=== PATIENT | female | born 1990 | race Caucasian/White ===

== ENCOUNTER 2020-12-01 10:08 | Outpatient (CLI) | payer BC ==
[2020-12-01 11:21] VITALS: BP 127/74; PULSE 96; RESP 16; TEMP 98.1
--- NOTE | 2021-01-13 16:24 | P.MSEPDOC ---
Presenting Problems - Arrival Data Date of Arrival on Unit: 12/01/20 Time of Arrival on Unit: 10:08 Mode of Transport: Ambulatory - Complaint OB-Reason for Admission/Chief Complaint: Decreased Movement Medical History - Information : 1 Para: 0 Term: 0 : 0 Abortions: Spontaneous or Elective: 0 Number of Living Children: 0 - Gestational Age Gestational Age by GUILLERMINA (wks/days): 27 Weeks and 3 Days Review of Systems - Review of Systems Constitutional: No problems Breast: No problems ENT: No problems Cardiovascular: No problems Respiratory: No problems Gastrointestinal: No problems Genitourinary: No problems Musculoskeletal: No problems Neurological: No problems Skin: No problems Vital Signs - Temperature Temperature: 98.1 F Temperature Source: Temporal Artery Scan - Pulse Brachial Pulse Rate: 96 - Respirations Respiratory Rate: 16 Oxygen Delivery Method: Room Air O2 Sat by Pulse Oximetry: 98 - Blood Pressure Right Arm Blood Pressure: 127/74 Blood Pressure Mean: 91 Blood Pressure Source: Automatic Cuff Physician Notification - Physician Notified Physician Notified Date: 12/01/20 Physician Notified Time: 10:40 Physician: Jazlyn Murry New Order Received: Yes - Notification Comment Comment: pt here for decreased movement at 27 weeks. Movement is audible on monitor and pt is now feeling it as well. Maternal Triage Index - Maternal Triage Index Presenting for scheduled procedure w/no complaint: No - Stat/Priority 1 Stat Priority 1: No - Urgent/Priority 2 Urgent Priority 2: No - Prompt/Priority 3 Prompt Priority 3: No - Non-Urgent/Priority 4 Non-Urgent Priority 4: No - Scheduled/Requesting Priority 5 Scheduled/Requesting Priority 5: No Disposition - Disposition OB Disposition: Triage, Discharge to home, Written follow up instructions reviewed Discharge Date: 12/01/20 Discharge Time: 10:45 I agree with the RN Medical Screening Exam: Yes Physician's MSE Comment: Patient was not seen reexamined by myself Case reviewed; plan agreed upon as documented in EMR&OBIX.: Yes Diagnosis: DECREASED MOVEMENTS, SECOND TRIMESTER, FETUS 1
== END 2020-12-01 10:45 | disposition home or self-care (01) ==
LOC: FBPOP 10:08
PROVIDERS: ATTEND Obstetrics & Gynecology Obstetrics
DX: O36.8121 Decreased fetal movements, second trimester, fetus 1 (principal); Z3A.27 27 weeks gestation of pregnancy
CPT/HCPCS: 99213

== ENCOUNTER 2021-02-24 01:53 | Inpatient (IN) | payer BC ==
[2021-02-24] MEDS ORDERED: CARBOPROST TROMETHAMINE 250 MCG/ML 1 ML AMP IM PRN (02:21)
[2021-02-24] MEDS ORDERED: OXYTOCIN 10 UNIT/ML 1 ML VIAL IM PRN (02:21)
[2021-02-24] MEDS ORDERED: METHYLERGONOVINE 0.2 MG/ML 1 ML AMP IM PRN (02:21)
[2021-02-24] MEDS ORDERED: LIDOCAINE 0.5% (PF) 5 MG/ML (50 ML SDV) SQ PRN (02:21)
[2021-02-24] MEDS ORDERED: TERBUTALINE 1 MG/ML VIAL SQ PRN (02:21)
[2021-02-24] MEDS: LACTATED RINGERS 1,000 ML IV SCH ×2 (03:01→07:45)
[2021-02-24 03:36] LABS: Basophils % (A) 0 %; Eosinophils # (A) 0.1 k/uL (0-0.7); Eosinophils % (A) 1 %; HCT 39.2 % (34.0-46.0); HGB 13.6 gm/dL (11.4-16.0); Lymphocytes # (A) 1.9 k/uL (1.0-4.8); Lymphocytes % (A) 19 %; MCH 30.5 pg (25.0-35.0); MCHC 34.8 g/dL (31.0-37.0); MCV 87.8 fL (80.0-100.0); Mean Platelet Volume 8.9; Monocytes # (A) 0.6 k/uL (0-1.0); Monocytes % (A) 6 %; Neutrophils # (A) 7.3 k/uL (1.3-7.7); Neutrophils % (A) 72 %; Platelet Count 224 k/uL (150-450); RBC 4.46 m/uL (3.80-5.40); RDW 13.1 % (11.5-15.5); WBC 10.1 k/uL (3.8-10.6)
[2021-02-24] MEDS ORDERED: OXYTOCIN 30 UNITS/500 ML NS 30 UNIT in SALINE 1 500ML.BAG IV SCH ×2 (05:00→13:15)
[2021-02-24] MEDS ORDERED: BUTORPHANOL 1 MG/ML 1 ML VIAL IV PRN (05:01)
[2021-02-24] MEDS ORDERED: ROPIVACAINE 5MG/ML 20ML VIAL ONE (07:30)
[2021-02-24] MEDS ORDERED: SODIUM CHLORIDE 0.9% 100 ML BAG ONE (07:30)
[2021-02-24] MEDS ORDERED: fentaNYL (PF) 50 MCG/ML 5 ML AMP ONE (07:30)
[2021-02-24] MEDS ORDERED: ROPIVACAINE 100 MG, fentaNYL (PF). 200 MCG in SODIUM CHLORIDE 0.9% 76 ML EPIDURAL ONE (11:03)
[2021-02-24] MEDS ORDERED: HYDROCORTISONE 2.5% RECTAL CREAM 30 GM TUBE RECTAL PRN (13:08)
[2021-02-24] MEDS ORDERED: LANOLIN CREAM 5 GM TUBE TOPICAL PRN (13:08)
[2021-02-24] MEDS ORDERED: BENZOCAINE/MENTHOL SPRAY 1 GM/SPRAY AEROSOL TOPICAL PRN (13:08)
[2021-02-24] MEDS ORDERED: ZOLPIDEM 5 MG TAB PO PRN (13:08)
[2021-02-24] MEDS ORDERED: diphenhydrAMINE 25 MG CAP PO PRN (13:08)
[2021-02-24] MEDS ORDERED: diphenhydrAMINE 50 MG/ML 1 ML VIAL IVP PRN ×2 (13:08)
[2021-02-24] MEDS ORDERED: SIMETHICONE 80 MG CHEWABLE PO PRN (13:08)
[2021-02-24] MEDS ORDERED: HYDROcodone/APAP 5-325MG 1 EACH TAB PO PRN (13:08)
[2021-02-24] MEDS ORDERED: ACETAMINOPHEN TAB 325 MG TAB PO PRN (13:08)
[2021-02-24] MEDS ORDERED: diphenhydrAMINE 50 MG CAP PO PRN (13:08)
[2021-02-24] MEDS: IBUPROFEN 600 MG TAB PO PRN (15:56)
[2021-02-24] MEDS: SENNOSIDES-DOCUSATE SODIUM 1 EACH TAB PO SCH (19:45)
[2021-02-25] MEDS: IBUPROFEN 600 MG TAB PO PRN ×2 (01:29→07:48)
[2021-02-25] MEDS: SENNOSIDES-DOCUSATE SODIUM 1 EACH TAB PO SCH (07:48)
[2021-02-25 08:19] VITALS: BP 105/71; PULSE 82; RESP 16; TEMP 97.9
--- NOTE | 2021-02-25 08:57 | P.DS ---
Providers Date of admission: 02/24/21 02:17 Expected date of discharge: 02/25/21 Attending physician: Hope Santiago Primary care physician: Stated None - Discharge Diagnosis(es) (1) Term Current Visit: Yes Status: Acute (2) SROM (spontaneous rupture of membranes) Current Visit: Yes Status: Acute (3) Status post normal vaginal delivery Current Visit: Yes Status: Acute Hospital Course: this is a 30-year-old 1 now para 1 at 40 weeks presented to labor and delivery on 02/24 with complaints of spontaneous rupture of membranes around 1 AM. patient had been receiving routine care with myself which had been essentially uncomplicated. Patient was admitted to labor and delivery and Pitocin augmentation of labor was begun. Patient did become uncomfortable and requested epidural placement, anesthesia did place this epidural without difficulty. Patient progressed to complete began pushing and had a normal spontaneous vaginal delivery of a viable female infant at 1258, weight of 8 lbs. 4 oz., Apgars of 8 and 9 at one and 5 minutes respectively. No vaginal lacerations were appreciated after delivery. Patient's course has been uneventful. On this post day #1 she is ambulating and voiding without difficulty. She states her lochia is minimal. She is bottle feeding. She denies concerns and would like discharge home at 24 hours. Patient Condition at Discharge: Good Plan - Discharge Summary Discharge Rx Participant: Yes New Discharge Prescriptions: No Action Aspirin [[place] Aspirin EC] 81 mg DAILY Pnv,Calcium 72/Iron/Folic Acid [ Plus Tablet] 1 tablet PO DAILY Discharge Medication List Aspirin [[place] Aspirin EC] 81 mg DAILY 12/01/20 [History] Pnv,Calcium 72/Iron/Folic Acid [ Plus Tablet] 1 tablet PO DAILY 12/01/20 [History] Follow up Appointment(s)/Referral(s): Hope Santiago DO [Doctor of Osteopathic Medicine] - 1 Week Patient Instructions/Handouts: Vaginal Delivery (GEN), Vaginal Delivery (DC) Discharge Disposition: HOME SELF-CARE
--- NOTE | 2021-02-25 08:58 | P.HPOB ---
History of Present Illness H&P Date: 02/24/21 Chief Complaint: UP at 40-0/7 weeks, spontaneous rupture of membranes this is a 30-year-old 1 para 0 at 40-0/7 weeks that presents to labor and delivery with complaints of spontaneous rupture of membranes. Patient noted leakage of fluid around 1 AM. Patient states the fluid was clear in nature. Patient denied contractions on initial admission to the hospital. Patient has been receiving routine care which might with myself which has been essentially uncomplicated. Patient notes good movement, denies vaginal bleeding. Review of Systems Constitutional: Denies chills, Denies fatigue, Denies fever Ears, nose, mouth and throat: Denies headache Cardiovascular: Denies leg edema Respiratory: Denies dyspnea Gastrointestinal: Denies nausea, Denies vomiting Genitourinary: Reports Past Medical History Past Medical History: No Reported History History of Any Multi-Drug Resistant Organisms: None Reported Past Surgical History: Tonsillectomy Past Anesthesia/Blood Transfusion Reactions: No Reported Reaction Past Psychological History: No Psychological Hx Reported Smoking Status: Never smoker Past Drug Use History: None Reported Medications and Allergies Home Medications Medication Instructions Recorded Confirmed Type Aspirin [[place] Aspirin EC] 81 mg DAILY 12/01/20 02/24/21 History Pnv,Calcium 72/Iron/Folic Acid 1 tablet PO DAILY 12/01/20 02/24/21 History [ Plus Tablet] Allergies Allergy/AdvReac Type Severity Reaction Status Date / Time No Known Allergies Allergy Verified 02/24/21 02:00 Exam Osteopathic Statement: *. No significant issues noted on an osteopathic structural exam other than those noted in the History and Physical/Consult. Vital Signs Temp Pulse Resp BP Pulse Ox 02/24/21 02:21 97.7 F 91 16 126/89 99 02/24/21 01:59 97.7 F 91 16 121/89 Intake and Output 02/23/21 02/24/21 02/24/21 22:59 06:59 14:59 Other: # Voids 2 Weight 106.594 kg targeted physical exam is performed in this date and tafe lecturer a well-nourished well-developed female in no acute distress, breathing is noted to be nonlabored, heart has a regular rate and rhythm, abdomen is gravid for gestational age, on cervical exam she is 6/90/-2 station, she did receive an epidural overnight. heart tones returned be category 1 and she is beti every 3 minutes, Pitocin is at 6 milliunits. Results Result Diagrams: 02/24/21 02:48 Assessment and Plan (1) Term Current Visit: Yes Status: Acute Code(s): Z34.90 - ENCNTR FOR SUPRVSN OF NORMAL , UNSP, UNSP TRIMESTER SNOMED Code(s): 96467490 (2) SROM (spontaneous rupture of membranes) Current Visit: Yes Status: Acute Code(s): FNV0024 - SNOMED Code(s): 655818860 Plan: this 30-year-old 1 para 0 at 40-0/7 weeks was admitted to labor and delivery overnight with spontaneous rupture of membranes. Patient did receive an epidural from anesthesia, secondary to labor pains. Anticipate spontaneous vaginal delivery later today.
--- NOTE | 2021-02-25 08:58 | P.PROBDLV ---
Vaginal Delivery Note - . Vaginal Delivery Note: This is a 30-year-old 1 para 0 that presented to labor and delivery at 40-0/7 weeks with complaints of spontaneous rupture of membranes. Patient was noted rupture of membranes around 1 AM. Patient presented at 2 AM and was noted to be 2 cm dilated. Patient was admitted to labor and delivery and after several hours Pitocin augmentation of labor was begun secondary to irregular contractions. Patient progressed in labor eventually becoming uncomfortable and requested epidural, epidural was placed without difficulty by the anesthesia department. Patient progressed to complete began pushing and had a normal spontaneous vaginal delivery of a viable female infant at 1258, weight of 8 pounds 4.1 ounces, Apgars of 8 and 9 at one and 5 minutes respect weight. After two-minute delayed the umbilical cord was doubly clipped and cut and the infant was handed to the maternal abdomen. Spontaneous cry was noted at . The placenta was then delivered spontaneously intact with a three-vessel cord being noted. No vaginal lacerations were appreciated. The uterus is noted to be firm and below the umbilicus. A straight blood loss 200 mL. The bladder was drained via [place] catheter for approximately 100 mL of clear yellow urine.
== END 2021-02-25 13:36 | disposition home or self-care (01) | DRG 807 ==
LOC: FBPOP 01:53 → 4FBP 02:17
PROVIDERS: ADMIT Obstetrics & Gynecology Obstetrics; ATTEND Obstetrics & Gynecology Obstetrics
PROC: 10E0XZZ Delivery of Products of Conception, External Approach (ICD-10-PCS; principal; 2021-02-24)
PROC: 3E033VJ Introduction of Other Hormone into Peripheral Vein, Percutaneous Approach (ICD-10-PCS; 2021-02-24)
DX: O80 Encounter for full-term uncomplicated delivery (principal); Z37.0 Single live birth; Z3A.40 40 weeks gestation of pregnancy; Z79.82 Long term (current) use of aspirin
CPT/HCPCS: 59025; 84112; 85025; 86850; 86900; 86901; 99213

== ENCOUNTER 2022-09-23 05:56 | Inpatient (IN) | payer BC ==
[2022-09-23] MEDS ORDERED: TERBUTALINE 1 MG/ML VIAL SQ PRN (06:18)
[2022-09-23] MEDS ORDERED: CARBOPROST TROMETHAMINE 250 MCG/ML 1 ML AMP IM PRN (06:18)
[2022-09-23] MEDS ORDERED: TRANEXAMIC 1,000 MG/100ML-NACL 1,000 MG in EMPTY BAG 1 BAG IV PRN (06:18)
[2022-09-23] MEDS ORDERED: METHYLERGONOVINE 0.2 MG/ML 1 ML AMP IM PRN (06:18)
[2022-09-23] MEDS ORDERED: LIDOCAINE 0.5% (PF) 5 MG/ML (50 ML SDV) SQ PRN (06:18)
[2022-09-23] MEDS ORDERED: miSOPROStoL 200 MCG TAB PO PRN (06:18)
[2022-09-23] MEDS ORDERED: OXYTOCIN 10 UNIT/ML 1 ML VIAL IM PRN (06:18)
[2022-09-23] MEDS ORDERED: OXYTOCIN 30 UNITS/500 ML NS 30 UNIT in SALINE 1 500ML.BAG IV SCH ×2 (06:30→18:15)
[2022-09-23 06:34] LABS: Basophils % (A) 0 %; Eosinophils # (A) 0.1 k/uL (0-0.7); Eosinophils % (A) 1 %; HCT 39.6 % (34.0-46.0); HGB 13.1 gm/dL (11.4-16.0); Lymphocytes % (A) 27 %; MCH 29.7 pg (25.0-35.0); MCHC 33.2 g/dL (31.0-37.0); MCV 89.3 fL (80.0-100.0); Mean Platelet Volume 8.8; Monocytes # (A) 0.5 k/uL (0-1.0); Monocytes % (A) 7 %; Neutrophils # (A) 4.5 k/uL (1.3-7.7); Neutrophils % (A) 63 %; Platelet Count 223 k/uL (150-450); RBC 4.43 m/uL (3.80-5.40); RDW 13.4 % (11.5-15.5); WBC 7.3 k/uL (3.8-10.6)
[2022-09-23] MEDS: LACTATED RINGERS 1,000 ML IV SCH ×3 (06:40→14:09)
[2022-09-23] MEDS ORDERED: ROPIVACAINE 5 MG/ML 20 ML AMPULE ONE (13:04)
[2022-09-23] MEDS ORDERED: fentaNYL (PF) 50 MCG/ML 5 ML AMP ONE (13:04)
[2022-09-23] MEDS ORDERED: SODIUM CHLORIDE 0.9% 100 ML BAG ONE (13:04)
[2022-09-23] MEDS ORDERED: ROPIVACAINE 225 MG, fentaNYL (PF). 450 MCG in SODIUM CHLORIDE 0.9% 171 ML EPIDURAL ONE (13:28)
--- NOTE | 2022-09-23 13:30 | P.ANPRN ---
Procedure Note - Anesthesia - Epidural/Spinal Epidural Continuous Date of Procedure: 09/23/22 Location of Patient: OB Indication: Analgesia, Requested by Surgeon Preparation: Sterile Prep Position: Sitting Catheter Depth at Skin (cm): 12 Catheter: Indwelling Needle Guage: 18 Blood Aspirated: No Pain Paresthesia on Injection Noted: No Events: Uneventful and Well Tolerated
[2022-09-23] MEDS ORDERED: ONDANSETRON 4 MG/2 ML VIAL IVP STA (15:29)
[2022-09-23 15:40] LABS: Glucose,Whole Blood 63 mg/dL (70-110)
[2022-09-23 16:04] LABS: Glucose,Whole Blood 86 mg/dL (70-110)
[2022-09-23] MEDS ORDERED: HYDROCORTISONE 2.5% RECTAL CREAM 30 GM TUBE RECTAL PRN (18:01)
[2022-09-23] MEDS ORDERED: diphenhydrAMINE 50 MG CAP PO PRN (18:01)
[2022-09-23] MEDS ORDERED: BENZOCAINE/MENTHOL SPRAY 1 GM/SPRAY AEROSOL TOPICAL PRN (18:01)
[2022-09-23] MEDS ORDERED: ZOLPIDEM 5 MG TAB PO PRN (18:01)
[2022-09-23] MEDS ORDERED: diphenhydrAMINE 50 MG/ML 1 ML VIAL IVP PRN ×2 (18:01)
[2022-09-23] MEDS ORDERED: SIMETHICONE 80 MG CHEWABLE PO PRN (18:01)
[2022-09-23] MEDS ORDERED: diphenhydrAMINE 25 MG CAP PO PRN (18:01)
[2022-09-23] MEDS ORDERED: LANOLIN CREAM 5 GM TUBE TOPICAL PRN (18:01)
--- NOTE | 2022-09-23 18:03 | P.HPOB ---
History of Present Illness H&P Date: 09/23/22 Chief Complaint: IUP @ 37 1/7 weeks, polyhydramnios This is a 31-year-old at 37 and one sevenths weeks that presents to labor and delivery for induction of labor secondary to polyhydramnios. Patient has been receiving routine care which has been complicated by polyhydramnios. Patient has noted continued contraction throughout the week increasing in severity. Patient denies vaginal bleeding. Patient does note good movement. On bloodwork this patient is a blood type of A+, rubella status immune, hep Marguer[place] surface antigen negative, HIV negative, RPR is nonreactive, group beta strep culture negative. Review of Systems Constitutional: Denies chills, Denies fatigue, Denies fever Ears, nose, mouth and throat: Denies headache Cardiovascular: Denies leg edema Respiratory: Denies dyspnea Gastrointestinal: Denies nausea, Denies vomiting Genitourinary: Reports Past Medical History Past Medical History: No Reported History History of Any Multi-Drug Resistant Organisms: None Reported Past Surgical History: Tonsillectomy Past Anesthesia/Blood Transfusion Reactions: No Reported Reaction Past Psychological History: No Psychological Hx Reported Smoking Status: Never smoker Past Alcohol Use History: None Reported Past Drug Use History: None Reported - Past Family History Mother Family Medical History: Cancer, Diabetes Mellitus, Hypertension Medications and Allergies Home Medications Medication Instructions Recorded Confirmed Type Aspirin [[place] Aspirin EC] 81 mg DAILY 12/01/20 09/23/22 History Vit No.180/Iron/Folic 1 tablet PO DAILY 12/01/20 09/23/22 History [ Plus Tablet] Allergies Allergy/AdvReac Type Severity Reaction Status Date / Time No Known Allergies Allergy Verified 09/23/22 06:14 Exam Osteopathic Statement: *. No significant issues noted on an osteopathic structural exam other than those noted in the History and Physical/Consult. Vital Signs Temp Pulse Resp BP 09/23/22 06:14 97.3 F L 76 16 107/72 Intake and Output 09/22/22 09/23/22 09/23/22 22:59 06:59 14:59 Other: Weight 98.883 kg Targeted physical exam is performed in this date in general this is a well- nourished well-developed female in no acute distress, breathing is noted to be nonlabored, heart has a regular rate and rhythm, abdomen is gravid, on cervical exam she is 2/50/-2 station amniotomy is performed and clear fluid is obtained, heart tones returned be category 1 and she is beti irregularly. Results Result Diagrams: 09/23/22 06:13 Assessment and Plan (1) Polyhydramnios Current Visit: Yes Status: Acute Code(s): O40.9XX0 - POLYHYDRAMNIOS, UNSP TRIMESTER, NOT APPLICABLE OR UNSP SNOMED Code(s): 30970576 (2) Term Current Visit: No Status: Acute Code(s): Z34.90 - ENCNTR FOR SUPRVSN OF NORMAL , UNSP, UNSP TRIMESTER SNOMED Code(s): 28292553 Plan: 31-year-old at 37 and one sevenths weeks presents for induction of labor secondary to polyhydramnios. Patient is admitted and Pitocin induction of labor is begun per hospital protocol. Options for analgesia are discussed including nitrous, Nubain, epidural. Patient states she would like an epidural when appropriate. Anticipate spontaneous vaginal delivery later today.
--- NOTE | 2022-09-23 18:05 | P.PROBDLV ---
Vaginal Delivery Note - . Vaginal Delivery Note: Viable female delivered at 1747, weight of 8 lbs. 5 oz., Apgars of 9 and 9 at one and 5 minutes respectively. This is a 31-year-old 2 para 1 at 37 and one sevenths weeks that presented to labor and delivery this morning for induction of labor secondary to polyhydramnios. Patient was admitted and Pitocin induction of labor was begun. Patient underwent amniotomy and clear fluid was obtained. Patient had considerable leakage of clear fluid throughout the labor process. Patient progressed through labor eventually becoming uncomfortable and requesting epidural placement. Epidural was placed without difficulty by the anesthesia department. Patient progressed to complete began pushing. With excellent maternal effort patient had delivery of the head followed by the anterior/posterior shoulder and body. Spent taste cry was noted at . A loose nuchal cord was delivered through. After two-minute delayed the umbilical cord was doubly clamped and cut. The placenta was delivered spontaneously intact with a three-vessel cord being noted. On inspection the patient's vaginal vault no lacerations were appreciated. Uterus is noted be firm and below the umbilicus. The bladder was drained for approximately 150 mL of clear yellow urine. A significant gush of vaginal bleeding was appreciated with fundal massage the uterus firmed. Lochia within moderate. Patient and tolerated delivery well and are resting comfortably. All counts were correct 2 at the delivery. EBL 200
[2022-09-23] MEDS: IBUPROFEN 600 MG TAB PO SCH (18:30)
[2022-09-23] MEDS: SENNOSIDES-DOCUSATE SODIUM 1 EACH TAB PO SCH (20:40)
[2022-09-23] MEDS: ACETAMINOPHEN TAB 325 MG TAB PO PRN (22:05)
[2022-09-24] MEDS: IBUPROFEN 600 MG TAB PO SCH ×3 (00:54→16:11)
[2022-09-24] MEDS: ACETAMINOPHEN TAB 325 MG TAB PO PRN ×2 (04:19→12:37)
[2022-09-24] MEDS: LACTATED RINGERS 1,000 ML IV SCH (06:47)
[2022-09-24 08:43] VITALS: RESP 16; TEMP 98.2
--- NOTE | 2022-09-24 11:28 | P.DS ---
Providers Date of admission: 09/23/22 05:56 Expected date of discharge: 09/24/22 Attending physician: Hope Santiago Primary care physician: Stated None - Discharge Diagnosis(es) (1) Status post normal vaginal delivery Current Visit: No Status: Acute Hospital Course: The patient is a 31-year-old 1 para 0 at 37 and one sevenths weeks who presents labor and delivery for induction secondary to significant polyhydramnios oh which has been her only complication for the . On labor and delivery, all signs are reassuring with a category 1 heart tracing. She had Pitocin augmentation started and underwent artificial rupture of membranes for a significant amount of clear amniotic fluid. She had an epidural catheter placed during the active phase of labor. She ultimately progressed to complete and then pushed to a normal spontaneous vaginal delivery of a viable 8 lbs. 5 oz. baby girl with Apgars of 9 at 1 minute and 9 at 5 minut es. Her course was unremarkable with vital signs or any stable and her temperature was afebrile throughout. She was deemed stable for discharge on day #1 was discharged home to follow-up in the office in 6 weeks' time routinely. Discharge instructions included calling for any significantly increased bleeding or foul-smelling lochia, significantly increased fever or abdominal pain, perineal complaints, breast complaints, or anything else that concerned her. She was additionally instructed to have nothing in the vagina for at least 6 weeks time to include intercourse. She understood her instructions and agrees to follow up as noted above. Discharge medications included only [id number] analgesic pain medications as needed. Maternal blood type is A+ and rubella status is immune. Procedures: #1. Pitocin induction #2. Artificial rupture of membranes #3. Epidural analgesia #4. Normal spontaneous vaginal delivery Patient Condition at Discharge: Stable Plan - Discharge Summary New Discharge Prescriptions: No Action Aspirin [[place] Aspirin EC] 81 mg DAILY Vit No.180/Iron/Folic [ Plus Tablet] 1 tablet PO DAILY Discharge Medication List Aspirin [[place] Aspirin EC] 81 mg DAILY 12/01/20 [History] Vit No.180/Iron/Folic [ Plus Tablet] 1 tablet PO DAILY 12/01/20 [History] Follow up Appointment(s)/Referral(s): Hope Santiago DO [Doctor of Osteopathic Medicine] - 6 Weeks Discharge Disposition: HOME SELF-CARE
[2022-09-24] MEDS: SENNOSIDES-DOCUSATE SODIUM 1 EACH TAB PO SCH (12:40)
[2022-09-24 16:31] VITALS: BP 114/72; PULSE 65
== END 2022-09-24 18:00 | disposition home or self-care (01) | DRG 807 ==
LOC: 4FBP 05:56
PROVIDERS: ADMIT Obstetrics & Gynecology Obstetrics; ATTEND Obstetrics & Gynecology Obstetrics
PROC: 3E033VJ Introduction of Other Hormone into Peripheral Vein, Percutaneous Approach (ICD-10-PCS; principal; 2022-09-23)
PROC: 10E0XZZ Delivery of Products of Conception, External Approach (ICD-10-PCS; 2022-09-23)
PROC: 10907ZC Drainage of Amniotic Fluid, Therapeutic from Products of Conception, Via Natural or Artificial Opening (ICD-10-PCS; 2022-09-23)
PROC: 3E0R3BZ Introduction of Anesthetic Agent into Spinal Canal, Percutaneous Approach (ICD-10-PCS; 2022-09-23)
DX: O40.3XX0 Polyhydramnios, third trimester, not applicable or unspecified (principal); Z37.0 Single live birth; Z3A.37 37 weeks gestation of pregnancy; Z79.82 Long term (current) use of aspirin
CPT/HCPCS: 85025; 86850; 86900; 86901

== ENCOUNTER 2023-10-06 13:06 | Day surgery (SDC) | payer BC ==
[2023-10-04 18:22] VITALS: BMI 27.0
[2023-10-06] MEDS: IV FLUID CONTINUATION 1,000 ML IV ONE (13:25)
[2023-10-06 13:35] VITALS: RESP 16; TEMP 97.8
[2023-10-06] MEDS: LACTATED RINGERS 1,000 ML IV SCH (13:43)
[2023-10-06] MEDS ORDERED: PROPOFOL 10 MG/ML 20 ML VIAL IV ONE (14:49)
[2023-10-06] MEDS ORDERED: fentaNYL (PF) 50 MCG/ML 2 ML AMP ONE (14:49)
[2023-10-06] MEDS ORDERED: MIDAZOLAM 2 MG/2 ML VIAL ONE (14:49)
--- NOTE | 2023-10-06 15:18 | P.PCN ---
Date of Procedure: 10/06/23 Procedure(s) Performed: BRIEF HISTORY: Patient is a 32-year-old pleasant white female scheduled for an elective colonoscopy as a part of screening for colon cancer and family history of colon cancer. Her father was diagnosed with colon cancer. PROCEDURE PERFORMED: Colonoscopy. PREOPERATIVE DIAGNOSIS: Screening for colon cancer and family history of colon cancer. IV sedation per Anesthesia. PROCEDURE: After informed consent was obtained, the patient, was brought into the endoscopy unit. IV sedation was administered by Anesthesia under continuous monitoring. Digital rectal examination was normal. Initially the Olympus CF-160 flexible video colonoscope was then inserted in the rectum, gradually advanced into the cecum without any difficulty. Careful examination was performed as the scope was gradually being withdrawn. Ileocecal valve and the appendiceal orifice were visualized and appeared normal. Prep was excellent. Mucosa of the cecum, ascending colon, transverse colon, descending colon, sigmoid colon, and rectum appeared normal. Retroflexion was performed in the rectum and no lesions were seen. The patient tolerated the procedure well. IMPRESSION: Normal-appearing colon from rectum to cecum with no evidence of colorectal neoplasia. RECOMMENDATIONS: Findings of this examination were discussed with the patient as well as her family. She was advised to have repeat screening colonoscopy in 5 years because of a family history of colon cancer.
[2023-10-06 15:36] VITALS: BP 130/81; PULSE 65
== END 2023-10-06 15:51 | disposition home or self-care (01) ==
LOC: ORWHC2ENDO 13:06
PROVIDERS: ATTEND Internal Medicine Gastroenterology
DX: Z12.11 Encounter for screening for malignant neoplasm of colon (principal); Z80.0 Family history of malignant neoplasm of digestive organs; Z79.899 Other long term (current) drug therapy
CPT/HCPCS: 81025; 45378; J2250; J3010; J2704

== ENCOUNTER 2024-09-02 05:58 | Inpatient (IN) | payer BC ==
[2024-09-02] MEDS ORDERED: TRANEXAMIC 1,000 MG/100ML-NACL 1,000 MG in EMPTY BAG 1 BAG IV PRN (06:11)
[2024-09-02] MEDS ORDERED: METHYLERGONOVINE 0.2 MG/ML 1 ML AMP IM PRN (06:11)
[2024-09-02] MEDS ORDERED: LIDOCAINE 0.5% (PF) 5 MG/ML (50 ML SDV) SQ PRN (06:11)
[2024-09-02] MEDS ORDERED: miSOPROStoL 200 MCG TAB RECTAL PRN (06:11)
[2024-09-02] MEDS ORDERED: CARBOPROST TROMETHAMINE 250 MCG/ML 1 ML AMP IM PRN (06:11)
[2024-09-02] MEDS ORDERED: TERBUTALINE 1 MG/ML VIAL SQ PRN (06:11)
[2024-09-02] MEDS ORDERED: miSOPROStoL 200 MCG TAB PO PRN (06:11)
[2024-09-02] MEDS ORDERED: OXYTOCIN 10 UNIT/ML 1 ML VIAL IM PRN (06:11)
[2024-09-02] MEDS: OXYTOCIN 30 UNITS/500 ML NS 30 UNIT in SALINE 1 500ML.BAG IV SCH (06:31)
[2024-09-02] MEDS: LACTATED RINGERS 1,000 ML IV SCH (06:31)
[2024-09-02 06:42] LABS: Basophils # (A) 0.04 10*3/uL (0.00-0.10); Basophils % (A) 0.5 %; Eosinophils # (A) 0.07 10*3/uL (0.04-0.35); Eosinophils % (A) 0.8 %; HCT 34.8 % (37.2-46.3); HGB 11.5 g/dL (12.0-15.0); Lymphocytes # (A) 1.31 10*3/uL (0.90-5.00); Lymphocytes % (A) 15.1 %; MCV 87.9 fL (80.0-97.0); Mean Platelet Volume 9.9 fL (9.5-12.2); Monocytes # (A) 0.72 10*3/uL (0.20-1.00); Monocytes % (A) 8.3 %; Neutrophils # (A) 6.44 10*3/uL (1.80-7.70); Neutrophils % (A) 74.4 %; Platelet Count 206 10*3/uL (140-440); RBC 3.96 10*6/uL (4.10-5.20); RDW 14.4 % (11.5-14.5); WBC 8.66 10*3/uL (4.50-10.00)
[2024-09-02] MEDS ORDERED: ROPIVACAINE 5 MG/ML 30 ML VIAL ONE (10:12)
[2024-09-02] MEDS ORDERED: fentaNYL (PF) 50 MCG/ML 5 ML AMP ONE (10:12)
[2024-09-02] MEDS ORDERED: SODIUM CHLORIDE 0.9% 250 ML BAG ONE (10:12)
[2024-09-02 11:58] LABS: Glucose,Whole Blood 78 mg/dL (70-110)
[2024-09-02] MEDS ORDERED: BENZOCAINE/MENTHOL SPRAY 1 GM/SPRAY AEROSOL TOPICAL PRN (16:44)
[2024-09-02] MEDS ORDERED: diphenhydrAMINE 50 MG/ML 1 ML VIAL IVP PRN ×2 (16:44)
[2024-09-02] MEDS ORDERED: LANOLIN CREAM 1 GM TUBE TOPICAL PRN (16:44)
[2024-09-02] MEDS ORDERED: SIMETHICONE 80 MG CHEWABLE PO PRN (16:44)
[2024-09-02] MEDS ORDERED: HYDROCORTISONE 2.5% RECTAL CREAM 30 GM TUBE RECTAL PRN (16:44)
[2024-09-02] MEDS ORDERED: ZOLPIDEM 5 MG TAB PO PRN (16:44)
[2024-09-02] MEDS ORDERED: diphenhydrAMINE 50 MG CAP PO PRN (16:44)
[2024-09-02] MEDS ORDERED: diphenhydrAMINE 25 MG CAP PO PRN (16:44)
--- NOTE | 2024-09-02 16:48 | P.PROBDLV ---
Vaginal Delivery Note - . Vaginal Delivery Note: Date of service 09/02/2024 Findings viable female infant delivered at 1633 weight of 8 pounds 3 ounces This is a 33-year-old at 39+ weeks that presents to labor and delivery for induction of labor. Patient was admitted and Pitocin induction of labor was begun. Patient underwent amniotomy and clear fluid was obtained. Patient did receive an epidural through the labor process. Patient progressed to complete dilation. Once completely dilated patient began pushing and with excellent maternal effort patient had a normal spontaneous vaginal delivery of a viable female at 1633 weight of 8 pounds 3 ounces. Spontaneous cry was noted at . After 2-minute delay the umbilical cord was doubly clamped and cut. Placenta was delivered spontaneously intact with a three-vessel cord being noted. On inspection of the patient's vaginal vault no lacerations were appreciated. Bladder was drained for approximately 200 cc of clear yellow urine. Estimated blood loss 100 cc All counts were to be correct x 2 at the end of delivery Patient and infant tolerated delivery well and are resting comfortably
[2024-09-02] MEDS: IBUPROFEN 800 MG TAB PO SCH (18:46)
[2024-09-02] MEDS: SENNOSIDES-DOCUSATE SODIUM 1 EACH TAB PO SCH (20:11)
[2024-09-02] MEDS: ACETAMINOPHEN TAB 500 MG TAB PO SCH (21:42)
--- NOTE | 2024-09-03 06:09 | P.DS ---
Providers Date of admission: 09/02/24 05:58 Expected date of discharge: 09/03/24 Attending physician: Hope Santiago Primary care physician: Stated None - Discharge Diagnosis(es) (1) Term Current Visit: No Status: Acute (2) Status post normal vaginal delivery Current Visit: No Status: Acute Hospital Course: This is a 33-year-old 3 now para 3 that presented to labor and delivery at 39 weeks of gestation for induction of labor. Patient had been receiving routine care which has been essentially uncomplicated. For full details and the patient please see the dictated history and physical patient was admitted to labor and delivery and Pitocin induction of labor was begun. Patient underwent amniotomy clear fluid was obtained. Patient did receive an epidural during the labor process. Patient progressed to complete began pushing and had a normal spontaneous vaginal delivery of a viable female at 1633, weight of 8 pounds 3 ounces, no vaginal lacerations were appreciated at the time of delivery. Patient's course has been uneventful. In this day #1 she is ambulating and voiding without difficulty. She is tolerating regular diet without nausea or vomiting. States her pain is well-controlled. She denies concerns. She would like discharge home at 24 hours. Patient Condition at Discharge: Good Plan - Discharge Summary Discharge Rx Participant: Yes New Discharge Prescriptions: No Action Escitalopram [Lexapro] 5 mg PO DAILY Discharge Medication List Escitalopram [Lexapro] 5 mg PO DAILY 10/04/23 [History] Follow up Appointment(s)/Referral(s): Hope Santiago DO [Doctor of Osteopathic Medicine] - 10/15/24 10:15 am Patient Instructions/Handouts: Vaginal Delivery (GEN), Vaginal Delivery (DC) Activity/Diet/Wound Care/Special Instructions: No tub baths or intercourse until 6 weeks . Srkl-rto-btcodri ibup rofen 600 mg or 3 tablets every 6 hours as needed for pain. Routine check at 6 weeks. Should she have any concerns prior to this appointment she is urged to call the office and be seen prior. Discharge Disposition: HOME SELF-CARE
--- NOTE | 2024-09-03 06:10 | P.HPOB ---
History of Present Illness H&P Date: 09/02/24 Chief Complaint: IUP at 39 weeks 33-year-old at 39 weeks of the presents for induction of labor. Patient has been receiving routine care which has been essentially uncomplicated. Patient notes good movement denies vaginal bleeding and does note an occasional contraction. On blood work this patient is up a type of A pos, rubella status immune, hepatitis B surface engine negative, HIV negative, RPR nonreactive, grew beta strep culture negative. Review of Systems Constitutional: Denies chills, Denies fatigue, Denies fever Ears, nose, mouth and throat: Denies headache Cardiovascular: Reports leg edema Respiratory: Denies dyspnea Gastrointestinal: Denies constipation, Denies diarrhea, Denies nausea, Denies vomiting Genitourinary: Reports Past Medical History Past Medical History: No Reported History History of Any Multi-Drug Resistant Organisms: None Reported Past Surgical History: Tonsillectomy Past Anesthesia/Blood Transfusion Reactions: No Reported Reaction Past Psychological History: No Psychological Hx Reported Smoking Status: Never smoker Past Alcohol Use History: Occasional Past Drug Use History: None Reported - Past Family History Mother Family Medical History: Cancer, Diabetes Mellitus, Hypertension Father Family Medical History: Cancer Medications and Allergies Home Medications Medication Instructions Recorded Confirmed Type Escitalopram [Lexapro] 5 mg PO DAILY 10/04/23 10/04/23 History Allergies Allergy/AdvReac Type Severity Reaction Status Date / Time No Known Allergies Allergy Verified 10/06/23 13:32 Exam Osteopathic Statement: *. No significant issues noted on an osteopathic structural exam other than those noted in the History and Physical/Consult. Vital Signs Temp Pulse Resp BP Pulse Ox 09/02/24 06:02 97.4 F L 102 H 16 99/59 98 Intake and Output 09/01/24 09/02/24 09/02/24 22:59 06:59 14:59 Other: Weight 98.43 kg Targeted physical exam is performed on this date, in general this is a well-nourished well-developed female in no acute distress breathing is nonlabored, abdomen is gravid, on cervical exam she is 1-2/50/-2 station amniotomy is performed clear fluid was obtained. heart tones noted to be category 1 and she is beti irregularly. Results Result Diagrams: 09/02/24 06:28 Abnormal Lab Results - Last 24 Hours (Table) 09/02/24 Range/Units 06:28 RBC 3.96 L (4.10-5.20) 10*6/uL Hgb 11.5 L (12.0-15.0) g/dL Hct 34.8 L (37.2-46.3) % Immature Gran # 0.08 H (0.00-0.04) 10*3/uL Assessment and Plan (1) Term Current Visit: No Status: Acute Code(s): Z34.90 - ENCNTR FOR SUPRVSN OF NORMAL , UNSP, UNSP TRIMESTER SNOMED Code(s): 48232806 Plan: Admit to labor and delivery Pitocin induction of labor per hospital protocol Epidural when appropriate Anticipate spontaneous vaginal delivery
[2024-09-03 16:49] VITALS: BP 110/72; PULSE 82; RESP 19; TEMP 98
== END 2024-09-03 17:15 | disposition home or self-care (01) | DRG 807 ==
LOC: 4FBP 05:58
PROVIDERS: ADMIT Obstetrics & Gynecology Obstetrics; ATTEND Obstetrics & Gynecology Obstetrics
PROC: 10907ZC Drainage of Amniotic Fluid, Therapeutic from Products of Conception, Via Natural or Artificial Opening (ICD-10-PCS; principal; 2024-09-02)
PROC: 10E0XZZ Delivery of Products of Conception, External Approach (ICD-10-PCS; principal; 2024-09-02)
PROC: 3E033VJ Introduction of Other Hormone into Peripheral Vein, Percutaneous Approach (ICD-10-PCS; principal; 2024-09-02)
DX: O80 Encounter for full-term uncomplicated delivery (principal); Z79.899 Other long term (current) drug therapy; Z3A.39 39 weeks gestation of pregnancy; Z37.0 Single live birth
CPT/HCPCS: 85025; 86850; 86900; 86901